=== PATIENT | male | born 1960 | race African-American/Black ===

== ENCOUNTER 2022-05-28 22:14 | Inpatient (IN) | payer OTHER ==
[~2022-05-28 22:14] MED LIST: Iopamidol-370 76% 500 ML 1 ML ONE
[2022-05-28 22:44] LABS: #Basophils 0.2 thou/uL (0.0-0.2); #Eosinphils 0.8 thou/uL (0.0-0.7); #Lymphocytes 4.8 thou/uL (1.20-3.40); #Neutrophils 8.2 thou/uL (1.40-6.50); %Basophils 1.1 % (0.0-1.0); %Eosinophils 5.3 % (0.0-10.0); %Lymphocytes 32.1 % (21.0-51.0); %Neutrophils 54.5 % (42.0-75.0); Hemoglobin 14.6 g/dL (14.0-18.0); Mean Corpuscular HGB CONC 32.8 g/dL (32.0-36.0); Mean Corpuscular Volume 97.6 fl (78.0-98.0); Mean Platelet Volume 7.8 fL (7.4-10.4); Platelet Count 296 10x3/uL (130-400); RBC Distribution Width 12.2 % (11.5-14.5); Red Blood Cell (RBC) Count 4.57 mill/uL (4.70-6.10); White Blood Cell (WBC) Count 14.9 10x3/uL (4.8-10.8)
[2022-05-28 23:04] LABS: ALT (SGPT) 38 U/L (8-55); AST (SGOT) 87 U/L (5-34); Albumin 4.5 g/dL (3.4-4.8); Alcohol 103 mg/dL (Less than 10); Alkaline Phosphatase 87 U/L (40-110); Anion Gap 15 mmol/L (10-20); BUN (Urea Nitrogen) 10 mg/dL (8.4-25.7); Bilirubin, Total 0.7 mg/dL (0.2-1.2); Calc. Creatinine Clearance 0 mL/min (70-130); Calcium 9.1 mg/dL (7.8-10.44); Carbon Dioxide 24 mmol/L (23-31); Chloride 101 mmol/L (98-107); Estimated GFR 67; Globulin 3.1 g/dL (2.4-3.5); Glucose 165 mg/dL (80-115); Potassium 3.7 mmol/L (3.5-5.1); Protein, Total 7.6 g/dL (5.8-8.1); Sodium 136 mmol/L (136-145)
[2022-05-28] MEDS ORDERED: Sodium Chloride 0.9% 1,000 ML IV SCH (23:45)
[2022-05-28] MEDS ORDERED: Dextrose 5% in Water 1,000 ML IV PRN (23:46)
[2022-05-28] MEDS ORDERED: Dextrose 50% Abboject 50 ML SYRINGE SLOW IVP PRN (23:46)
[2022-05-28] MEDS ORDERED: Ondansetron PF 4 MG/2 ML Vial IVP PRN (23:46)
[2022-05-28] MEDS ORDERED: TETANUS, DIPHTHERIA TOX,ADULT (TDVAX) 0.5 ML VIAL IM ONE (23:46)
[2022-05-28] MEDS ORDERED: Ipratropium/Albuterol 3 ML NEB NEB PRN (23:46)
[2022-05-28] MEDS ORDERED: Morphine 2 MG/ML VIAL SLOW IVP PRN (23:46)
[2022-05-29] MEDS ORDERED: Cyclobenzaprine 10 MG TAB PO PRN
[2022-05-29] MEDS ORDERED: traMADol HCl 50 MG TAB PO PRN
[2022-05-29] MEDS ORDERED: Morphine 4 MG/ML VIAL ONE (00:11)
[2022-05-29] MEDS: Acetaminophen 500 MG TAB PO SCH ×4 (02:58→17:23)
[2022-05-29 02:59] VITALS: BMI 30.6
[2022-05-29 03:53] LABS: SARS-CoV-2 NAA Rapid Test Not Detected (NotDetected)
[2022-05-29] MEDS: traMADol HCl 50 MG TAB PO SCH ×3 (04:33→17:23)
[2022-05-29] MEDS: Sodium Chloride 0.9% 1,000 ML IV SCH ×2 (04:34→17:23)
[2022-05-29 06:00] LABS: #Monocytes 1.5 thou/uL (0.11-0.59); #Neutrophils 12.4 thou/uL (1.40-6.50); %Basophils 0.2 % (0.0-1.0); %Eosinophils 0.2 % (0.0-10.0); %Lymphocytes 6.7 % (21.0-51.0); %Monocytes 9.7 % (0.0-10.0); %Neutrophils 83.2 % (42.0-75.0); Hemoglobin 13.4 g/dL (14.0-18.0); Mean Corpuscular HGB CONC 32.1 g/dL (32.0-36.0); Mean Corpuscular Hemoglobin 31.2 pg (27.0-31.0); Mean Corpuscular Volume 97.4 fl (78.0-98.0); Mean Platelet Volume 7.8 fL (7.4-10.4); Platelet Count 262 10x3/uL (130-400); RBC Distribution Width 12.1 % (11.5-14.5); Red Blood Cell (RBC) Count 4.28 mill/uL (4.70-6.10); White Blood Cell (WBC) Count 14.9 10x3/uL (4.8-10.8)
[2022-05-29 06:04] LABS: INR-International Normal Ratio 1.1; Prothrombin Time 14.7 sec (12.0-14.7)
[2022-05-29 06:13] LABS: Anion Gap 16 mmol/L (10-20); BUN (Urea Nitrogen) 10 mg/dL (8.4-25.7); Calc. Creatinine Clearance 103 mL/min (70-130); Calcium 8.8 mg/dL (7.8-10.44); Carbon Dioxide 19 mmol/L (23-31); Chloride 103 mmol/L (98-107); Estimated GFR 95; Glucose 160 mg/dL (80-115); Potassium 4.4 mmol/L (3.5-5.1); Sodium 134 mmol/L (136-145)
[2022-05-29] MEDS ORDERED: CEFAZOLIN 2 GM in Sodium Chloride 0.9% 100 ML IVPB SCH ×2 (07:30→16:15)
[2022-05-29] MEDS: Gabapentin 300 MG CAP PO SCH ×3 (08:25→20:19)
[2022-05-29] MEDS: Atorvastatin Calcium 20 MG TAB PO SCH (08:25)
[2022-05-29] MEDS: FLUoxetine HCl 20 MG CAP PO SCH (08:25)
[2022-05-29] MEDS: Famotidine/PF 20 mg/2ml Vial SLOW IVP SCH ×2 (08:26→20:19)
[2022-05-29] MEDS: Senokot S 8.6-50 MG TAB PO SCH ×2 (08:26→20:19)
[2022-05-29] MEDS: Polyethylene Glycol 3350 17 GM Packet PO SCH (08:26)
[2022-05-29] MEDS ORDERED: Sodium Chloride 0.9% 100 ML ONE (14:13)
[2022-05-29] MEDS ORDERED: CEFAZOLIN 2 GM VIAL ONE (14:13)
[2022-05-29] MEDS ORDERED: fentaNYL PF 100 MCG/2 ML SYRINGE ONE (14:34)
[2022-05-29] MEDS ORDERED: PHENYLEPHRINE-NS 100 MCG/ML 10 ML SYRINGE ONE (14:50)
[2022-05-29] MEDS ORDERED: Lidocaine 1% PF 5 ML VIAL ONE (14:50)
[2022-05-29] MEDS ORDERED: Rocuronium Bromide 10 MG/ML (10ML VIAL) ONE (14:50)
[2022-05-29] MEDS ORDERED: PROPOFOL 200 MG/20 ML VIAL ONE (14:50)
[2022-05-29] MEDS ORDERED: Fentanyl 250 MCG/5 ML VIAL ONE (15:22)
[2022-05-29] MEDS ORDERED: SUGAMMADEX SODIUM 200 MG/2 ML VIAL ONE (15:22)
[2022-05-29] MEDS ORDERED: Albumin 5% 250 ML ONE (15:23)
[2022-05-29] MEDS: risperiDONE 3 MG TAB PO SCH (20:19)
[2022-05-29] MEDS: CEFAZOLIN 2 GM in Sodium Chloride 0.9% 100 ML IVPB SCH (21:47)
[2022-05-30] MEDS: Acetaminophen 500 MG TAB PO SCH ×4 (01:11→18:28)
[2022-05-30] MEDS: traMADol HCl 50 MG TAB PO SCH ×4 (01:12→18:28)
[2022-05-30] MEDS: CEFAZOLIN 2 GM in Sodium Chloride 0.9% 100 ML IVPB SCH ×2 (05:50→18:27)
[2022-05-30 06:32] LABS: #Eosinphils 0.1 thou/uL (0.0-0.7); #Lymphocytes 1.4 thou/uL (1.20-3.40); %Basophils 0.1 % (0.0-1.0); %Eosinophils 1.3 % (0.0-10.0); %Lymphocytes 19.2 % (21.0-51.0); %Monocytes 13.5 % (0.0-10.0); %Neutrophils 65.9 % (42.0-75.0); Mean Corpuscular HGB CONC 32.5 g/dL (32.0-36.0); Mean Corpuscular Volume 98.5 fl (78.0-98.0); Mean Platelet Volume 7.8 fL (7.4-10.4); Platelet Count 191 10x3/uL (130-400); Red Blood Cell (RBC) Count 3.13 mill/uL (4.70-6.10); White Blood Cell (WBC) Count 7.5 10x3/uL (4.8-10.8)
[2022-05-30 06:48] LABS: Anion Gap 10 mmol/L (10-20); BUN (Urea Nitrogen) 11 mg/dL (8.4-25.7); Calc. Creatinine Clearance 96 mL/min (70-130); Calcium 7.9 mg/dL (7.8-10.44); Carbon Dioxide 22 mmol/L (23-31); Chloride 104 mmol/L (98-107); Estimated GFR 88; Glucose 162 mg/dL (80-115); Phosphorus 2.6 mg/dL (2.3-4.7); Potassium 4.3 mmol/L (3.5-5.1); Sodium 132 mmol/L (136-145)
[2022-05-30] MEDS ORDERED: CEFAZOLIN 2 GM in Sodium Chloride 0.9% 100 ML IVPB SCH (07:00)
[2022-05-30] MEDS ORDERED: PHOS-NAK 1 PKT PACK PO SCH (07:45)
[2022-05-30] MEDS: FLUoxetine HCl 20 MG CAP PO SCH (09:46)
[2022-05-30] MEDS: Gabapentin 300 MG CAP PO SCH ×3 (09:46→20:34)
[2022-05-30] MEDS: Polyethylene Glycol 3350 17 GM Packet PO SCH (09:48)
[2022-05-30] MEDS: Senokot S 8.6-50 MG TAB PO SCH ×2 (09:48→20:33)
[2022-05-30] MEDS: Famotidine/PF 20 mg/2ml Vial SLOW IVP SCH ×2 (09:48→20:33)
[2022-05-30] MEDS: Atorvastatin Calcium 20 MG TAB PO SCH (09:48)
[2022-05-30] MEDS ORDERED: Midazolam HCl 2 mg/2 ml Vial ONE ×2 (13:41→17:08)
[2022-05-30] MEDS ORDERED: Bupivacaine PF 0.5% 30 ML VIAL ONE (13:42)
[2022-05-30] MEDS ORDERED: fentaNYL PF 100 MCG/2 ML SYRINGE ONE ×3 (13:42→17:14)
[2022-05-30] MEDS ORDERED: CEFAZOLIN 2 GM VIAL ONE (14:24)
[2022-05-30] MEDS ORDERED: Sodium Chloride 0.9% 100 ML ONE (14:24)
[2022-05-30] MEDS ORDERED: HYDROmorphone 0.5 MG/0.5 ML SYRINGE ONE (17:08)
[2022-05-30] MEDS ORDERED: Bupivacaine HCl 0.5%/Epinephrine 1:200,000/PF 30 ml Vial ONE (17:26)
[2022-05-30] MEDS ORDERED: PROPOFOL 200 MG/20 ML VIAL ONE (17:26)
[2022-05-30] MEDS ORDERED: PHENYLEPHRINE-NS 100 MCG/ML 10 ML SYRINGE ONE (17:26)
[2022-05-30] MEDS ORDERED: Lidocaine 1% PF 5 ML VIAL ONE (17:26)
[2022-05-30] MEDS ORDERED: Ondansetron HCl/PF 4 MG/2 ML Vial IVP PRN (19:37)
[2022-05-30] MEDS ORDERED: Promethazine HCl 25 MG/ML VIAL IM PRN (19:37)
[2022-05-31] MEDS: CEFAZOLIN 2 GM in Sodium Chloride 0.9% 100 ML IVPB SCH ×2 (01:00→09:10)
[2022-05-31] MEDS: traMADol HCl 50 MG TAB PO SCH ×4 (01:00→17:27)
[2022-05-31] MEDS: Acetaminophen 500 MG TAB PO SCH ×4 (01:01→17:30)
[2022-05-31 06:22] LABS: #Eosinphils 0.1 thou/uL (0.0-0.7); #Lymphocytes 0.8 thou/uL (1.20-3.40); #Monocytes 1.3 thou/uL (0.11-0.59); %Eosinophils 0.7 % (0.0-10.0); %Lymphocytes 8.1 % (21.0-51.0); %Neutrophils 78.1 % (42.0-75.0); Hemoglobin 7.6 g/dL (14.0-18.0); Mean Corpuscular Hemoglobin 32.4 pg (27.0-31.0); Mean Corpuscular Volume 98.4 fl (78.0-98.0); Mean Platelet Volume 8.1 fL (7.4-10.4); Platelet Count 152 10x3/uL (130-400); RBC Distribution Width 11.8 % (11.5-14.5); Red Blood Cell (RBC) Count 2.35 mill/uL (4.70-6.10); White Blood Cell (WBC) Count 10.2 10x3/uL (4.8-10.8)
[2022-05-31 06:50] LABS: Anion Gap 13 mmol/L (10-20); BUN (Urea Nitrogen) 8 mg/dL (8.4-25.7); Calc. Creatinine Clearance 111 mL/min (70-130); Calcium 7.9 mg/dL (7.8-10.44); Carbon Dioxide 23 mmol/L (23-31); Chloride 103 mmol/L (98-107); Estimated GFR 99; Glucose 150 mg/dL (80-115); Magnesium 1.9 mg/dL (1.6-2.6); Phosphorus 2.4 mg/dL (2.3-4.7); Potassium 4.3 mmol/L (3.5-5.1); Sodium 135 mmol/L (136-145)
[2022-05-31] MEDS: risperiDONE 3 MG TAB PO SCH (07:42)
[2022-05-31] MEDS ORDERED: PHOS-NAK 1 PKT PACK PO SCH (07:45)
[2022-05-31] MEDS: Senokot S 8.6-50 MG TAB PO SCH (09:02)
[2022-05-31] MEDS: FLUoxetine HCl 20 MG CAP PO SCH (09:08)
[2022-05-31] MEDS: Atorvastatin Calcium 20 MG TAB PO SCH (09:08)
[2022-05-31] MEDS: Gabapentin 300 MG CAP PO SCH ×3 (09:08→20:48)
[2022-05-31] MEDS: Polyethylene Glycol 3350 17 GM Packet PO SCH (09:10)
[2022-05-31] MEDS: HumaLOG 300 UNITS/3 ML VIAL SC PRN ×2 (11:03→17:31)
[2022-05-31] MEDS: Sodium Chloride 0.9% 1,000 ML IV SCH (11:27)
[2022-05-31] MEDS: Ferrous Sulfate 325 MG TAB PO SCH (17:30)
[2022-05-31] MEDS: Ascorbic Acid 500 mg Chewable Tablet PO SCH (20:49)
[2022-06-01] MEDS: Senokot S 8.6-50 MG TAB PO SCH ×3 (00:34→20:22)
[2022-06-01] MEDS: Acetaminophen 500 MG TAB PO SCH ×4 (00:47→17:50)
[2022-06-01] MEDS: traMADol HCl 50 MG TAB PO SCH ×4 (00:47→17:49)
[2022-06-01] MEDS: risperiDONE 3 MG TAB PO SCH ×2 (00:47→21:01)
[2022-06-01 06:13] LABS: #Eosinphils 0.2 thou/uL (0.0-0.7); #Lymphocytes 2.1 thou/uL (1.20-3.40); #Monocytes 1.5 thou/uL (0.11-0.59); #Neutrophils 8.8 thou/uL (1.40-6.50); %Basophils 0.2 % (0.0-1.0); %Eosinophils 1.6 % (0.0-10.0); %Lymphocytes 16.5 % (21.0-51.0); %Monocytes 11.6 % (0.0-10.0); %Neutrophils 70.1 % (42.0-75.0); Mean Corpuscular HGB CONC 33.4 g/dL (32.0-36.0); Mean Corpuscular Hemoglobin 32.6 pg (27.0-31.0); Mean Corpuscular Volume 97.5 fl (78.0-98.0); Mean Platelet Volume 7.9 fL (7.4-10.4); Platelet Count 172 10x3/uL (130-400); RBC Distribution Width 11.9 % (11.5-14.5); Red Blood Cell (RBC) Count 2.45 mill/uL (4.70-6.10); White Blood Cell (WBC) Count 12.5 10x3/uL (4.8-10.8)
[2022-06-01 06:42] LABS: Anion Gap 12 mmol/L (10-20); BUN (Urea Nitrogen) 6 mg/dL (8.4-25.7); Calc. Creatinine Clearance 126 mL/min (70-130); Calcium 7.9 mg/dL (7.8-10.44); Carbon Dioxide 26 mmol/L (23-31); Chloride 100 mmol/L (98-107); Estimated GFR 103; Glucose 119 mg/dL (80-115); Magnesium 1.9 mg/dL (1.6-2.6); Phosphorus 2.9 mg/dL (2.3-4.7); Sodium 134 mmol/L (136-145)
[2022-06-01] MEDS ORDERED: PHOS-NAK 1 PKT PACK PO SCH (07:30)
[2022-06-01] MEDS: Ferrous Sulfate 325 MG TAB PO SCH ×2 (09:27→15:54)
[2022-06-01] MEDS: Ascorbic Acid 500 mg Chewable Tablet PO SCH ×2 (09:28→20:22)
[2022-06-01] MEDS: Gabapentin 300 MG CAP PO SCH ×3 (09:28→20:23)
[2022-06-01] MEDS: FLUoxetine HCl 20 MG CAP PO SCH (09:28)
[2022-06-01] MEDS: Atorvastatin Calcium 20 MG TAB PO SCH (09:28)
[2022-06-01] MEDS: Polyethylene Glycol 3350 17 GM Packet PO SCH (09:30)
[2022-06-01] MEDS: HumaLOG 300 UNITS/3 ML VIAL SC PRN (13:24)
[2022-06-01 17:27] LABS: #Eosinphils 0.2 thou/uL (0.0-0.7); #Lymphocytes 1.7 thou/uL (1.20-3.40); #Monocytes 1.2 thou/uL (0.11-0.59); #Neutrophils 9.5 thou/uL (1.40-6.50); %Basophils 0.1 % (0.0-1.0); %Eosinophils 1.7 % (0.0-10.0); %Lymphocytes 13.7 % (21.0-51.0); %Monocytes 9.1 % (0.0-10.0); %Neutrophils 75.5 % (42.0-75.0); Hemoglobin 7.8 g/dL (14.0-18.0); Mean Corpuscular HGB CONC 33.4 g/dL (32.0-36.0); Mean Corpuscular Hemoglobin 32.8 pg (27.0-31.0); Mean Corpuscular Volume 98.2 fl (78.0-98.0); Mean Platelet Volume 7.6 fL (7.4-10.4); Platelet Count 187 10x3/uL (130-400); RBC Distribution Width 11.9 % (11.5-14.5); Red Blood Cell (RBC) Count 2.36 mill/uL (4.70-6.10); White Blood Cell (WBC) Count 12.6 10x3/uL (4.8-10.8)
[2022-06-01 17:41] LABS: Anion Gap 12 mmol/L (10-20); BUN (Urea Nitrogen) 9 mg/dL (8.4-25.7); Calc. Creatinine Clearance 105 mL/min (70-130); Carbon Dioxide 26 mmol/L (23-31); Chloride 98 mmol/L (98-107); Estimated GFR 97; Glucose 204 mg/dL (80-115); Magnesium 1.9 mg/dL (1.6-2.6); Phosphorus 2.4 mg/dL (2.3-4.7); Sodium 132 mmol/L (136-145)
[2022-06-01] MEDS ORDERED: Sodium Phosphate 15 MMOL in Sodium Chloride 0.9% 250 ML 250 ML IVPB SCH (18:15)
[2022-06-01] MEDS: Apixaban 5 MG TAB PO SCH (20:21)
[2022-06-02] MEDS: Acetaminophen 500 MG TAB PO SCH ×4 (00:52→17:49)
[2022-06-02] MEDS: traMADol HCl 50 MG TAB PO SCH ×4 (00:52→17:48)
[2022-06-02 06:18] LABS: #Eosinphils 0.5 thou/uL (0.0-0.7); #Lymphocytes 2.2 thou/uL (1.20-3.40); #Monocytes 1.3 thou/uL (0.11-0.59); #Neutrophils 8.3 thou/uL (1.40-6.50); %Basophils 0.2 % (0.0-1.0); %Eosinophils 3.9 % (0.0-10.0); %Monocytes 10.2 % (0.0-10.0); %Neutrophils 67.7 % (42.0-75.0); Hemoglobin 8.7 g/dL (14.0-18.0); Mean Corpuscular HGB CONC 33.2 g/dL (32.0-36.0); Mean Corpuscular Hemoglobin 32.4 pg (27.0-31.0); Mean Corpuscular Volume 97.6 fl (78.0-98.0); Mean Platelet Volume 7.4 fL (7.4-10.4); Platelet Count 203 10x3/uL (130-400); Red Blood Cell (RBC) Count 2.68 mill/uL (4.70-6.10); White Blood Cell (WBC) Count 12.2 10x3/uL (4.8-10.8)
[2022-06-02 06:41] LABS: Anion Gap 12 mmol/L (10-20); BUN (Urea Nitrogen) 8 mg/dL (8.4-25.7); Calc. Creatinine Clearance 120 mL/min (70-130); Calcium 8.1 mg/dL (7.8-10.44); Carbon Dioxide 28 mmol/L (23-31); Chloride 99 mmol/L (98-107); Estimated GFR 101; Glucose 133 mg/dL (80-115); Magnesium 1.9 mg/dL (1.6-2.6); Phosphorus 3.6 mg/dL (2.3-4.7); Potassium 3.9 mmol/L (3.5-5.1); Sodium 135 mmol/L (136-145)
[2022-06-02] MEDS ORDERED: PHOS-NAK 1 PKT PACK PO SCH (08:00)
[2022-06-02] MEDS: Ferrous Sulfate 325 MG TAB PO SCH ×2 (09:28→15:55)
[2022-06-02] MEDS: Senokot S 8.6-50 MG TAB PO SCH ×2 (09:28→20:37)
[2022-06-02] MEDS: metFORMIN 500 MG TAB PO SCH (09:28)
[2022-06-02] MEDS: Polyethylene Glycol 3350 17 GM Packet PO SCH (09:28)
[2022-06-02] MEDS: Ascorbic Acid 500 mg Chewable Tablet PO SCH ×2 (09:28→20:37)
[2022-06-02] MEDS: Gabapentin 300 MG CAP PO SCH ×3 (09:29→20:37)
[2022-06-02] MEDS: FLUoxetine HCl 20 MG CAP PO SCH (09:29)
[2022-06-02] MEDS: Apixaban 5 MG TAB PO SCH ×2 (09:29→20:37)
[2022-06-02] MEDS: Atorvastatin Calcium 20 MG TAB PO SCH (09:29)
[2022-06-02] MEDS ORDERED: Apixaban 5 MG TAB PO SCH (12:30)
[2022-06-02] MEDS: HumaLOG 300 UNITS/3 ML VIAL SC PRN (12:32)
[2022-06-02] MEDS: risperiDONE 3 MG TAB PO SCH (20:37)
[2022-06-03] MEDS: traMADol HCl 50 MG TAB PO SCH ×3 (00:13→12:29)
[2022-06-03] MEDS: Acetaminophen 500 MG TAB PO SCH ×3 (00:13→12:30)
[2022-06-03] MEDS: FLUoxetine HCl 20 MG CAP PO SCH (08:41)
[2022-06-03] MEDS: Apixaban 5 MG TAB PO SCH (08:41)
[2022-06-03] MEDS: metFORMIN 500 MG TAB PO SCH (08:41)
[2022-06-03] MEDS: Gabapentin 300 MG CAP PO SCH ×2 (08:41→15:07)
[2022-06-03] MEDS: Atorvastatin Calcium 20 MG TAB PO SCH (08:41)
[2022-06-03] MEDS: Ascorbic Acid 500 mg Chewable Tablet PO SCH (08:42)
[2022-06-03] MEDS: Ferrous Sulfate 325 MG TAB PO SCH (08:42)
[2022-06-03] MEDS: Polyethylene Glycol 3350 17 GM Packet PO SCH (08:46)
[2022-06-03] MEDS: Senokot S 8.6-50 MG TAB PO SCH (08:46)
[2022-06-03] MEDS: HumaLOG 300 UNITS/3 ML VIAL SC PRN (12:34)
[2022-06-03 12:36] VITALS: BP 143/84; TEMP 98.8
[2022-06-09] MEDS ORDERED: Apixaban 5 MG TAB PO SCH (09:00)
== END 2022-06-03 15:15 | DRG 956 ==
LOC: ERS 22:14 → SURG A 23:46
PROVIDERS: ADMIT Surgery; ATTEND Surgery
PROC: 0QSL04Z Reposition Right Tarsal with Internal Fixation Device, Open Approach (ICD-10-PCS; 2022-05-29)
PROC: 0QSC04Z Reposition Left Lower Femur with Internal Fixation Device, Open Approach (ICD-10-PCS; principal; 2022-05-30)
PROC: 30233N1 Transfusion of Nonautologous Red Blood Cells into Peripheral Vein, Percutaneous Approach (ICD-10-PCS; 2022-05-31)
DX: S72.492A Other fracture of lower end of left femur, initial encounter for closed fracture (principal); S27.0XXA Traumatic pneumothorax, initial encounter; S12.600A Unspecified displaced fracture of seventh cervical vertebra, initial encounter for closed fracture; S22.31XA Fracture of one rib, right side, initial encounter for closed fracture; S22.41XA Multiple fractures of ribs, right side, initial encounter for closed fracture; D62 Acute posthemorrhagic anemia; S92.001A Unspecified fracture of right calcaneus, initial encounter for closed fracture; Z20.822 Contact with and (suspected) exposure to COVID-19; F31.9 Bipolar disorder, unspecified; I10 Essential (primary) hypertension; E11.9 Type 2 diabetes mellitus without complications; E78.5 Hyperlipidemia, unspecified; V49.9XXA Car occupant (driver) (passenger) injured in unspecified traffic accident, initial encounter; Z79.84 Long term (current) use of oral hypoglycemic drugs; Z79.899 Other long term (current) drug therapy
CPT/HCPCS: 28400; 36415; 36416; 36430; 70450; 71045; 71260; 72125; 72170; 74177; 76377; 80048; 80053; 80307; 83735; 84100; 84484; 85025; 85610; 85730; 86850; 86900; 86901; 93005; 93010; 93970; 96374; C1713; C1769; G0390; J1170; J1650; J1815; J2250; J2270; J2704; J3010; J3490; J7050; P9016; P9045; Q9967; S0020; S0028; U0002